=== PATIENT | female | born 1970 | race Caucasian/White ===

== ENCOUNTER 2025-05-17 06:24 | Day surgery (SDC) | payer OTHER, SELFPAY ==
--- OUTSIDE RECORDS SUMMARY | 2025-04-19 10:32 | XMS_ITS | Patient Health Record ---
Author Organization [facility] Address [address] [place] [address] Care Team Providers Care Document Preparer Microfilming Name Role Phone CHRIS SHABBIR Primary Care Provider Unavail able Trung Taylor Unavailable [phone] Allergies Allergen (clinical drug ingredient) Drug/Non Drug Allergy documented on EMR Reaction Allergy Type Onset Date Status acetaminophen / oxycodone Percocet Unknown Drug Allergy Active Reason For Referral No Information Medications Medication SIG (Take, Route, Frequency, Duration) Notes Start Date End Date Status Letrozole 2.5 MG Oral for 90 Days Active Fish Oil 1000 MG 1 capsule Orally Onc e a day for 30 day(s) Active Escitalopram Oxalate 10 MG Oral for 90 Days Active Immunizations Vaccine Route Administration Date Status Comme nts Influenza Unknown 03/06/2019 Refused Influenza Unknown 02/10/2025 Refused Problems Problem Type SNOMED Code ICD Code Onset Dates Problem Status W/U Status Risk Notes Problem 835210898 Encounter for screening for malignant neoplasm of colon (Z12.11) Active confirmed Problem Preprocedural examination (534158450319619) Preprocedural examination (Z01.818) Active confirmed Problem 877860610 Family history o f colon cancer (Z80.0) Active confirmed Problem 74921154 Constipation, unspecified constipation type (K59.00) Active confirmed Vital Signs Temperature 98.0 degrees Fahrenheit 02/10/2025 Blood pressure diastolic 01 mm Hg 02/10/2025 Height 66 in 02/10/2025 Blood pressure systolic 001 mm Hg 02/10/2025 Weight 148 lbs 02/10/2025 BMI 23.89 kg/m2 02/10/2025 Procedures Procedure Date Ordered Date Performed Result Body Sit e COLONOSCOPY 02/10/2025 N/A Encounters Encounter Location Date Provider Diagnosis [facility] [address] [place] [address] 02/10/2025 Trung Taylor Encounter for screen ing for malignant neoplasm of colon Z12.11 ; Family history of colon cancer Z80.0 and Preprocedural examination Z01.818 Assessments Encounter Date Diagnosis (ICD Code) Assessment Notes Treatment Notes Treatment Clinical Notes Section Notes 02/10/2025 Encounter for screening for malignant neoplasm of colon (ICD-10 - Z12.11) Overall, Argelia appears quite well. Given her excellent clinical appearance, her family history, and her last colonoscopy being over 5 years ago, I did recommend a follow-up colonoscopy for further screening purposes. We did review the rationale for this in regard to colon cancer prevention. Full consent has been obtained for this, including risks of bleeding and perforation. The procedure will be done with monitored anesthesia care. She was advised to stop her fish oil for 1 week before the procedure. Argelia was very comfortable with this plan. Thank you again for allowing me to participate in Argelia's care. I shall continue to keep you advised of her progress. 02/10/2025 Preprocedural examination (ICD-10 - Z01.818) Overall, Argelia appears quite well. Given her excellent clinical appearance, her family history, and her last colonoscopy being over 5 years ago, I did recommend a follow-up colonoscopy for further screening purposes. We did review the rationale for this in regard to colon cancer prevention. Full consent has been obtained for this, including risks of bleeding and perforation. The procedure will be done with monitored anesthesia care. She was advised to stop her fish oil for 1 week before the procedure. Argelia was very comfortable with this plan. Thank you again for allowing me to participate in Argelia's care. I shall continue to keep you advised of her progress. 02/10/2025 Family history of colon cancer (ICD-10 - Z80.0) Overall, Argelia appears quite well. Given her excellent clinical appearance, her family history, and her last colonoscopy being over 5 years ago, I did recommend a follow-up colonoscopy for further screening purposes. We did review the rationale for this in regard to colon cancer prevention. Full consent has been obtained for this, including risks of bleeding and perforation. The procedure will be done with monitored anesthesia care. She was advised to stop her fish oil for 1 week before the procedure. Argelia was very comfortable with this plan. Thank you again for allowing me to participate in Argelia's care. I shall continue to keep you advised of her progress. Plan Of Treatment Pending Test Test Name Order Date COLONOSCOPY 02/10/2025 Future Test Test Name Order Date COLONOSCOPY 10/16/2013 COLONOSCOPY 03/06/2019 Next Appt Details Provider Name:Trung Taylor , 05/17/2025 07:30:00 AM, [address] [place] [address] , [place], [phone], Insurance Providers Payer Name Payer Address Payer Phone Subscriber Number Group Number Insured Name Patient Relationship to Insured Coverage Start Date Coverage End Date [facility] [address] [place] [phone] [id number] MANUEL SKY Self - patient is the insured Medical (General) History Medical History History ICD Code Colonoscopy 02-24-2006 and 12/2013--paid intern al hemorrhoids Denies [place],DM,CVA,Lung disease,renal dise ase Left breast cancer in 2014-left mastecto my, chemo, and Tamoxifen Overactive bladder Negative screening colonoscopy in 2018. Surgical History Surgery Date(Month/Year) Left mastectomy as above 2014 C- sections
[2025-05-13 10:05] VITALS: BMI 23.9
--- NOTE | 2025-05-14 12:20 | HO.ANESPROP2 ---
Documented by User: Nkechi Mahan NP 05/14/25 12:22 HPI - Anesthesia Eval Consult details Narrative: 54yo F for Colonoscopy FOR[facility]LY [facility] Past Medical History Medical History GERD (gastroesophageal reflux disease) Overactive bladder Breast cancer, left Surgical History Surgical History History of Hx of left mastectomy H/O colonoscopy Social History Social History Household Members: Spouse Patient Tobacco Use Status: Never used Tobacco Use of substances other than those prescribed or required for medical reasons: No Are you DNR?: No Advance Directives: No Advance Directives Information Provided: Yes Patient : No Meds Allergies Allergy/AdvReac Type Severity Reaction Status Date / Time oxycodone (From PERCOCET) Allergy Severe NAUSEA & Verified 05/17/25 06:47 VOMITING Home Medications ?Medication ?Instructions ?Recorded ?Confirmed ?Last Taken ?Type escitalopram oxalate 10 mg tablet 10 mg PO DAILY 05/13/25 05/13/25 Unknown History letrozole 2.5 mg tablet 2.5 mg PO DAILY 05/13/25 05/13/25 Unknown History omega 2-cap-zrs-fish oil 1,000 mg 1 cap PO DAILY 05/13/25 05/13/25 Unknown History (120 mg-180 mg) capsule (Fish Oil) Exam Height,Weight and Vital Signs: Height 5 ft 6 in Weight 67.132 kg Assessment and Plan Assessment Anesthesia Assessment: Chart Reviewed Documented by User: Kesha Anderson MD 05/17/25 08:12 PMF Past Medical History Medical History GERD (gastroesophageal reflux disease) Overactive bladder Breast cancer, left Family History Family history of problems with anesthesia: No Surgical History Surgical History History of Hx of left mastectomy H/O colonoscopy History of Problems with Anesthesia: No Social History Social History Household Members: Spouse Patient Tobacco Use Status: Never used Tobacco Use of substances other than those prescribed or required for medical reasons: No Are you DNR?: No Advance Directives: No Advance Directives Information Provided: Yes Patient : No Meds Allergies Allergy/AdvReac Type Severity Reaction Status Date / Time oxycodone (From PERCOCET) Allergy Severe NAUSEA & Verified 05/17/25 06:47 VOMITING Home Medications ?Medication ?Instructions ?Recorded ?Confirmed ?Last Taken ?Type escitalopram oxalate 10 mg tablet 10 mg PO DAILY 05/13/25 05/13/25 Unknown History letrozole 2.5 mg tablet 2.5 mg PO DAILY 05/13/25 05/13/25 Unknown History omega 8-fpr-zmr-fish oil 1,000 mg 1 cap PO DAILY 05/13/25 05/13/25 Unknown History (120 mg-180 mg) capsule (Fish Oil) Exam Airway Mallampati Class: II TM Dist: >3cm Neck ROM: Full Heart: rrr Lungs: cta Assessment and Plan Assessment Anesthesia Assessment: Anesthesia Plan Discussed Final Anesthetic Review Family History of Problems with Anesthesia: No History of Problems with Anesthesia: No NPO: Yes ASA Class: III Final Preanesthetic Review: No Changes in Pt Med Stat, Meds/Allgs Chart Reviewed, Consent Obtained/Reviewed and Anes Risks/Benef Reviewed Patient Risk: Intermediate Procedure Risk: Low Anesthetic Plan Anesthetic Plan: MAC: Disposition: Standard PACU
[2025-05-17 06:48] VITALS: BMI 24.5
[2025-05-17 06:53] VITALS: BP 136/76; RESP 16; TEMP 36.2; O2SAT 98
[2025-05-17] MEDS: Lactated Ringers 1,000 ML 100 ML IVCONT (07:11)
[2025-05-17 08:28] VITALS: BP 105/67; PULSE 84; RESP 18; TEMP 36.1; O2SAT 98
[2025-05-17 08:30] VITALS: BP 102/66; PULSE 70; RESP 18; O2SAT 98
--- NOTE | 2025-05-17 08:30 | P.BOP_ITS ---
Brief Operative Note Date of Service: 05/17/25 Pre-op diagnosis: Screening Post-op diagnosis: other (Diverticulosis) Procedure: Colonoscopy to the cecum and TI Surgeon: Trung Taylor MD Anesthesia: MAC Was an Senior Analytic Consultant used for this Procedure?: No Estimated blood loss (mL): 0 Pathology: none sent Condition: stable Disposition: PACU
[2025-05-17 08:40] VITALS: BP 120/69; PULSE 71; RESP 18; TEMP 36.1; O2SAT 98
--- NOTE | 2025-05-17 09:03 | OP_ITS ---
DATE OF SERVICE: 05/17/2025 SURGEON: Trung Taylor MD INDICATIONS: The patient presents for evaluation of colorectal cancer screening and family history of colon cancer. Full consent obtained from her for this, including risks of bleeding and perforation. PREOPERATIVE DIAGNOSIS: Colorectal cancer screening and family history of colon cancer. POSTOPERATIVE DIAGNOSIS: Colorectal cancer screening and family history of colon cancer, mild diverticulosis, and internal hemorrhoids. PROCEDURE PERFORMED: Colonoscopy to the cecum and terminal ileum. ESTIMATED BLOOD LOSS: COMPLICATIONS: ANESTHESIA: Monitored anesthesia care. ASSISTANTS: SPECIMENS: DESCRIPTION OF PROCEDURE: Patient was placed in the left lateral decubitus position. The digital rectal exam revealed no abnormalities. The Olympus video pediatric colonoscope was entered into the rectum and advanced easily to the cecum. Once in the cecum, I did identify normal-appearing cecal pouch with appendiceal orifice and a normal-appearing ileocecal valve. The terminal ileum was cannulated and appeared normal. The scope was withdrawn back in the colon. The entire cecum and ileocecal valve appeared normal. The scope was slowly withdrawn assessing all mucosal surfaces carefully. Preparation was excellent. I did not visualize any sign of polyps, colitis, nor angiodysplasia. There was a mild amount of sigmoid diverticulosis. In the rectum, scope was retroflexed, visualizing internal hemorrhoids, but no other pathology. The rectal mucosa appeared normal. The scope was straightened and withdrawn from the patient. She tolerated the procedure well and was returned to recovery area in stable condition. IMPRESSION: 1. Sigmoid diverticulosis. 2. Internal hemorrhoids. PLAN: Given her family history, I would recommend a repeat colonoscopy in 5 years for further screening. She will otherwise see me on a p.r.n. basis. MD MARLO Beasley/ZAID / [id number]
== END 2025-05-17 09:05 | disposition home or self-care (01) ==
PROVIDERS: PCP Physician Assistant Medical; Visit Provider Internal Medicine
PROC: 0DJD8ZZ Inspection of Lower Intestinal Tract, Via Natural or Artificial Opening Endoscopic (ICD-10-PCS; CPT 45378; principal; 2025-05-17 07:30)
DX: Z12.11 Encounter for screening for malignant neoplasm of colon (principal); Z80.0 Family history of malignant neoplasm of digestive organs; K57.30 Diverticulosis of large intestine without perforation or abscess without bleeding; K64.8 Other hemorrhoids; Z85.3 Personal history of malignant neoplasm of breast; Z92.21 Personal history of antineoplastic chemotherapy; Z90.12 Acquired absence of left breast and nipple; K21.9 Gastro-esophageal reflux disease without esophagitis; N32.81 Overactive bladder; Z79.811 Long term (current) use of aromatase inhibitors; Z79.899 Other long term (current) drug therapy; Z88.5 Allergy status to narcotic agent
CPT/HCPCS: 45378; J2003; J2704